=== PATIENT | female | born 2000 | race Two or more races ===

== ENCOUNTER 2021-06-05 15:48 | Emergency (ER) | payer OTHER ==
[~2021-06-05] VITALS: Ht 157.5 cm; Wt 73.0 kg
[2021-06-05] MEDS ORDERED: PEPCID20 MG PO (18:12)
[2021-06-05] MEDS ORDERED: AMOX-CLAV 875-1 EACH PO (18:12)
[2021-06-05] MEDS ORDERED: INTESTINEX680 M2 PO (18:12)
== END 2021-06-05 18:43 | disposition home or self-care (01) ==
LOC: ER 15:48
DX: O26.892 Other specified pregnancy related conditions, second trimester (principal); L03.317 Cellulitis of buttock; Z3A.15 15 weeks gestation of pregnancy

== ENCOUNTER 2021-06-07 09:44 | Emergency (ER) | payer OTHER ==
[~2021-06-07] VITALS: Ht 157.5 cm; Wt 73.0 kg
[~2021-06-07 09:44] MED LIST: AMOX-CLAV 875-1 EACH PO; INTESTINEX680 M2 PO; PEPCID20 MG PO
[2021-06-07] MEDS ORDERED: PRENATAL + DHA1 EAC1 PO (09:56)
[2021-06-07] MEDS ORDERED: HIBICLENS118 ML TOP (11:06)
[2021-06-07] MEDS ORDERED: MUPIROCIN1 G1 TOP (11:06)
== END 2021-06-07 11:09 | disposition home or self-care (01) ==
LOC: ER 09:44
DX: L03.317 Cellulitis of buttock (principal)

== ENCOUNTER 2021-08-06 08:04 | Outpatient (CLI) | payer OTHER ==
[~2021-08-06 08:04] MED LIST changes: +HIBICLENS118 ML TOP; +MUPIROCIN1 G1 TOP; +PRENATAL + DHA1 EAC1 PO
[2021-08-07] MEDS ORDERED: ZITHROMAX200 MG PO (14:22)
[2021-08-07] MEDS ORDERED: MUCINEX DM ER1 EAC1 PO (14:22)
== END 2021-08-06 09:50 | disposition home or self-care (01) ==
LOC: PRENATAL 08:04
PROVIDERS: ATTEND Obstetrics & Gynecology Maternal & Fetal Medicine
DX: O35.0XX1 Maternal care for (suspected) central nervous system malformation in fetus, fetus 1 (principal); O35.3XX1 Maternal care for (suspected) damage to fetus from viral disease in mother, fetus 1; O98.512 Other viral diseases complicating pregnancy, second trimester; Z36.89 Encounter for other specified antenatal screening; Z3A.24 24 weeks gestation of pregnancy

== ENCOUNTER 2021-08-07 11:12 | Emergency (ER) | payer OTHER ==
[~2021-08-07] VITALS: Ht 157.5 cm; Wt 77.1 kg
[2021-08-07] MEDS ORDERED: ZITHROMAX200 MG PO (14:22)
[2021-08-07] MEDS ORDERED: MUCINEX DM ER1 EAC1 PO (14:22)
== END 2021-08-07 14:39 ==
LOC: ER 11:12
DX: U07.1 COVID-19 (principal); R50.9 Fever, unspecified; B96.0 Mycoplasma pneumoniae [M. pneumoniae] as the cause of diseases classified elsewhere

== ENCOUNTER 2021-11-13 09:29 | Inpatient (IN) | payer OTHER ==
[~2021-11-13] VITALS: Ht 157.5 cm; Wt 84.8 kg
[~2021-11-13 09:29] MED LIST changes: +MUCINEX DM ER1 EAC1 PO; +ZITHROMAX200 MG PO
[2021-11-13] MEDS ORDERED: PRENATAL VITAM1 EAC7 (11:18)
== END 2021-11-15 15:12 | disposition home or self-care (01) | DRG 807 ==
LOC: LDR 09:29 → OB/GYN 17:59
PROVIDERS: ADMIT Obstetrics & Gynecology; ATTEND Obstetrics & Gynecology
PROC: 10E0XZZ Delivery of Products of Conception, External Approach (ICD-10-PCS; principal; 2021-11-13)
PROC: 4A1HXCZ Monitoring of Products of Conception, Cardiac Rate, External Approach (ICD-10-PCS; 2021-11-13)
PROC: 0UQMXZZ Repair Vulva, External Approach (ICD-10-PCS; 2021-11-13)
DX: O71.82 Other specified trauma to perineum and vulva (principal); Z37.0 Single live birth; Z3A.38 38 weeks gestation of pregnancy; Z20.822 Contact with and (suspected) exposure to COVID-19